=== PATIENT | male | born 1990 | race Caucasian/White ===

== ENCOUNTER 2017-07-08 05:12 | Emergency (ER) | payer OTHER ==
[~2017-07-08] VITALS: Ht 170.2 cm; Wt 65.1 kg
[~2017-07-08 05:12] MED LIST: NO HOME MEDS
[2017-07-08] MEDS ORDERED: clindamycin 150mg capsule PO ONE (05:30)
[2017-07-08] MEDS ORDERED: CLIN-80 PO (05:32)
[2017-07-08 06:01] VITALS: BP 148/8
== END 2017-07-08 06:04 | disposition home or self-care (01) ==
LOC: ER 05:13
DX: L03.114 Cellulitis of left upper limb (principal); F17.200 Nicotine dependence, unspecified, uncomplicated; F15.10 Other stimulant abuse, uncomplicated; Z98.890 Other specified postprocedural states; Z90.49 Acquired absence of other specified parts of digestive tract
CPT/HCPCS: 99283